=== PATIENT | male | born 1985 | race Caucasian/White ===

== ENCOUNTER 2017-10-03 11:50 | Inpatient (IN) | payer OTHER ==
[2017-10-03 12:34] VITALS: BMI 56.3
--- NOTE | 2017-10-03 15:59 | HP ---
Admission ROS [facility] Chief Complaint: Patient presents for Rehab services for heroin, benzodiazepine, crack/cocaine dependence. Allergies/Adverse Reactions: Allergies Allergy/AdvReac Type Severity Reaction Status Date / Time Penicillins Allergy Severe Difficulty Verified 10/03/17 13:04 Breathing shellfish derived Allergy Severe Difficulty Verified 10/03/17 13:04 Breathing History of Present Illness: Patient came from [facility] for rehab services. Has history of heroin, crack/cocaine and xanax dependence. Last time he used all substances was on 09/28. Pt has states he has been using while in [facility] program. Pt inhales/smokes heroin and crack/cocaine since age 16. Uses up to 2-3 bags of each per day. Takes up to 6mg of Xanax daily and began using xanax at age 16 as well. Attempted detox at [facility] 07/2017. Denies having any seizures from Xanax use or withdrawal. Denies SI/HI and suicide attempts. Patient reports being in [facility]. Takes 50mg of Methadone daily. Verification by RN pending. Medicated today [facility] program. Denies any PMH/PSH. Exam Limitations: No Limitations - Ebola screening Have you traveled outside of the country in the last 21 days: No Have you had contact with anyone from an Ebola affected area: No Have you been sick,other than usual withdrawal symptoms: No Do you have a fever: No - Review of Systems Constitutional: Changes in sleep EENT: reports: No Symptoms Reported Respiratory: reports: No Symptoms reported Cardiac: reports: No Symptoms Reported GI: reports: No Symptoms Reported : reports: No Symptoms Reported Musculoskeletal: reports: Back Pain, Muscle Pain Integumentary: reports: No Symptoms Reported Neuro: reports: No Symptoms reported Endocrine: reports: Unexplained Weight Gain Hematology: reports: No Symptoms Reported Psychiatric: reports: Orientated x3, Anxious, Depressed Patient History - Patient Medical History Hx Anemia: No Hx Asthma: No Hx Chronic Obstructive Pulmonary Disease (COPD): No Hx Cancer: No Hx Cardiac Disorders: No Hx Congestive Heart Failure: No Hx Hypertension: No Hx Hypercholesterolemia: No Hx Pacemaker: No HX Cerebrovascular Accident: No Hx Seizures: No Hx Dementia: No Hx Diabetes: No Hx Gastrointestinal Disorders: No Hx Liver Disease: No Hx Genitourinary Disorders: No Hx Sexually Transmitted Disorders: No Hx Renal Disease (ESRD): No Hx Thyroid Disease: No Hx Human Immunodeficiency Virus (HIV): No Hx Hepatitis C: No Hx Depression: Yes Hx Suicide Attempt: No Hx Bipolar Disorder: No Hx Schizophrenia: No - Patient Surgical History Past Surgical History: No Hx Neurologic Surgery: No Hx Cataract Extraction: No Hx Cardiac Surgery: No Hx Lung Surgery: No Hx Breast Surgery: No Hx Breast Biopsy: No Hx Abdominal Surgery: No Hx Appendectomy: No Hx Cholecystectomy: No Hx Genitourinary Surgery: No Hx Orthopedic Surgery: No Anesthesia Reaction: No - PPD History Previous Implant?: Yes Documented Results: Negative w/o proof PPD to be Administered?: Yes - Smoking Cessation Smoking history: Current every day smoker Have you smoked in the past 12 months: Yes Aproximately how many cigarettes per day: 20 Hx Chewing Tobacco Use: No Initiated information on smoking cessation: Yes 'Breaking Loose' booklet given: 10/03/17 - Substance & Tx. History Hx Alcohol Use: No Hx Substance Use: Yes Substance Use Type: Cocaine, Heroin, Marijuana, Tranquilizers Hx Substance Use Treatment: Yes - Substances Abused Alprazolam (Xanax) Route: Oral Frequency: 3-6 times per week Amount used: 4-6mg Age of first use: 26 Date of Last Use: 09/28/17 Cocaine Route: Inhalation Frequency: 1-3 times last 30 days Amount used: 1-2 bags Age of first use: 21 Date of Last Use: 09/28/17 Marijuana/Hashish Route: Smoking Frequency: 1-3 times last 30 days Amount used: 1 joint Age of first use: 12 Date of Last Use: 09/28/17 Family Disease History - Family Disease History Family Disease History: Diabetes: Father (alive), Mother (alive) Admission Physical Exam S - Vital Signs Vital Signs: Vital Signs - 24 hr 10/03/17 12:23 Temperature 98 F Pulse Rate 105 H Respiratory 19 Rate Blood Pressure 155/99 - Physical General Appearance: Yes: Appropriately Dressed, Obese, Anxious HEENTM: Yes: EOMI, Hearing grossly Normal, Normocephalic, TONY, Pharynx Normal Respiratory: Yes: Chest Non-Tender, Lungs Clear, Normal Breath Sounds, No Respiratory Distress, No Accessory Muscle Use Neck: Yes: No masses,lesions,Nodules, Supple, Trachea in good position Breast: Yes: Breast Exam Deferred Cardiology: Yes: Regular Rhythm, Regular Rate, S1, S2 Abdominal: Yes: Normal Bowel Sounds, Non Tender, Other (obese) Genitourinary: Yes: Within Normal Limits Back: Yes: Normal Inspection, Muscle Spasm Musculoskeletal: Yes: Gait Steady, Back pain, Muscle Pain Extremities: Yes: Non-Tender, Swelling Neurological: Yes: exchange consultant II-XII NML intact, Fully Oriented, Alert, Motor Strength 5/5, Depressed Affect Integumentary: Yes: Normal Color, Dry, Warm Lymphatic: Yes: Within Normal Limits - Diagnostic (1) Opioid dependence Current Visit: Yes Status: Chronic Qualifiers: Substance use status: uncomplicated Qualified Code(s): F11.20 - Opioid dependence, uncomplicated (2) Cocaine dependence Current Visit: Yes Status: Acute Qualifiers: Substance use status: uncomplicated Qualified Code(s): F14.20 - Cocaine dependence, uncomplicated (3) Sedative, hypnotic or anxiolytic dependence Current Visit: Yes Status: Acute (4) Depressed affect Current Visit: Yes Status: Acute (5) Methadone maintenance therapy patient Current Visit: Yes Status: Acute Cleared for Admission [facility] - Detox or Rehab Claeared for Rehab Admission: Yes [facility] Breath Alcohol Content Breath Alcohol Content: 0 Urine Drug Screen - Results Drug Screen Negative: No Urine Drug Screen Results: THC-Marijuana, BZO-Benzodiazepines, MTD-Methadone, TCA-Tricyclic Antidepress Inpatient Rehab Admission - Initial Determination Are CD services needed?: Yes Free of communicable disease: Yes Not in need of hospitalization: Yes - Rehab Admission Criteria Previous failed treatment: Yes Poor recovery environment: Yes Comorbidities: Yes Lacks judgement: Yes Patient is meeting Inpatient Rehab admission criteria:: Yes
[2017-10-03] MEDS ORDERED: LOPERAMIDE HCL 2 MG CAPSULE PO PRN (16:14)
[2017-10-03] MEDS ORDERED: guaiFENesin/D-METHORPHAN HB 10 ML UNIT-DOSE CUPS PO PRN (16:14)
[2017-10-03] MEDS ORDERED: MAGNESIUM CITRATE 300 ML BOTTLE PO PRN (16:14)
[2017-10-03] MEDS ORDERED: P-EPHED 60MG/TRIPROLIDI 2.5MG TABLET PO PRN (16:14)
[2017-10-03] MEDS ORDERED: MENTHOL/PHENOL 1 EACH UD MM PRN (16:14)
[2017-10-03] MEDS ORDERED: MAGNESIUM HYDROX 2400MG/30ML ORAL SUSPENSION 30 ML CUP PO PRN (16:14)
[2017-10-03] MEDS ORDERED: TUBERCULIN PPD 5 TU/0.1ML VIAL ID ONE (20:14)
[2017-10-03] MEDS: hydrOXYzine PAMOATE 50 MG CAPSULE (FP) PO PRN (21:12)
[2017-10-03] MEDS: MELATONIN 5 MG TABLETS PO PRN (21:12)
[2017-10-03] MEDS: THIAMINE HCL 100 MG TABLET (FP) PO SCH (21:12)
[2017-10-03] MEDS: IBUPROFEN 400 MG TABLET (FP) PO PRN (21:12)
[2017-10-03] MEDS: NICOTINE POLACRILEX 2 MG GUM BC PRN (22:39)
[2017-10-03 23:37] LABS: URINE APPEARANCE CLEAR; URINE BILIRUBIN NEGATIVE (<2.0 mg/dL); URINE BLOOD NEGATIVE (NEGATIVE); URINE COLOR YELLOW; URINE GLUCOSE (UA) NEGATIVE (NEGATIVE); URINE KETONE NEGATIVE (NEGATIVE); URINE LEUK ESTERASE NEGATIVE (NEGATIVE); URINE NITRITE NEGATIVE (NEGATIVE); URINE PROTEIN NEGATIVE (NEGATIVE); URINE UROBILINOGEN NEGATIVE mg/dL (0.2-1.0)
[2017-10-04] MEDS ORDERED: METHADONE HCL 10 MG TABLET PO ONE (08:56)
[2017-10-04] MEDS ORDERED: METHADONE 40 MG, METHADONE 10 MG PO ONE (09:05)
[2017-10-04] MEDS ORDERED: METHADONE HCL 10 MG TABLET ONE (09:38)
[2017-10-04] MEDS ORDERED: METHADONE HCL 40 MG DISPERSABLE TABLET ONE (09:39)
[2017-10-04] MEDS: PRENATAL VITAMINS W/ FOLIC ACID TABLET (FP) PO SCH (09:47)
[2017-10-04] MEDS: IBUPROFEN 400 MG TABLET (FP) PO PRN ×2 (09:48→21:06)
[2017-10-04] MEDS: NICOTINE 21 MG/24 HOURS TOPICAL PATCH TD SCH (09:48)
--- NOTE | 2017-10-04 09:49 | HP ---
Psychiatrist Admission - Data Date of interview: 10/04/17 Admission source: [facility] Identifying data: This is the first Inpatient Rehabilitation for this 32 years old single male, father of a 13 years old daughter, unemployed on public assistance, domiciled living a [facility] residential program Medical History: Significant for hypertension. Patient is methadone 50mg/day. Smokes cigarettes 1ppd Psychiatric History: Denies history of previous psychiatric treatment Physical/Sexual Abuse/Trauma History: Denies history pf emotional, physical or sexual abuse as well as DV relationship Additional Comment: Reports history of multiple previous arrests including one feliny conviction in 2009. Denies being on parole/probation Vital Signs: Vital Signs - 24 hr 10/03/17 10/04/17 12:23 06:42 Temperature 98 F 97.4 F L Pulse Rate 105 H 73 Respiratory 19 18 Rate Blood Pressure 155/99 132/86 Allergies/Adverse Reactions: Allergies Allergy/AdvReac Type Severity Reaction Status Date / Time Penicillins Allergy Severe Difficulty Verified 10/03/17 13:04 Breathing shellfish derived Allergy Severe Difficulty Verified 10/03/17 13:04 Breathing Date of last physical exam: 10/03/17 Concur with the findings of this exam: Yes - Substance Abuse/Tx History Hx Alcohol Use: No Hx Substance Use: Yes Substance Use Type: Cocaine (Started using cocaine at age 21, consumes 1-2 bags 1-3 times in the last 30 days. Last used on 09/28/17), Marijuana (Started smoking marijuana at age 12, consumes one joint 1-3 times in the last 30 days. Last smoked on 09/28/17), Tranquilizers (Started using xanax at age 26, consumes 4-6 mg 3-6 times weekly. Last used on 09/28/17) Hx Substance Use Treatment: Yes (detox @ [facility] in Jul 2017) Mental Status Exam - Mental Status Exam Alert and Oriented to: Time, Place, Person Cognitive Function: Fair Patient Appearance: Well Groomed Mood: Depressed (mildly) Affect: Appropriate Patient Behavior: Cooperative Speech Pattern: Clear Voice Loudness: Normal Thought Process: Intact, Goal Oriented Thought Disorder: Not Present Hallucinations: Denies Suicidal Ideation: Denies Homicidal Ideation: Denies Insight/Judgement: Fair Sleep: Poorly Appetite: Good Muscle strength/Tone: Normal Gait/Station: Normal Psychiatric Findings - Problem List ([place] 1, 2,3) (1) Cocaine dependence Current Visit: Yes Status: Acute Qualifiers: Substance use status: uncomplicated Qualified Code(s): F14.20 - Cocaine dependence, uncomplicated (2) Sedative, hypnotic or anxiolytic dependence Current Visit: Yes Status: Acute (3) Cannabis abuse Current Visit: Yes Status: Acute (4) Opioid dependence on agonist therapy Current Visit: Yes Status: Chronic (5) Nicotine dependence Current Visit: Yes Status: Chronic (6) Substance induced mood disorder Current Visit: Yes Status: Acute (7) Substance-induced sleep disorder Current Visit: Yes Status: Acute (8) HTN (hypertension) Current Visit: Yes Status: Chronic (9) Morbid obesity Current Visit: Yes Status: Chronic - Initial Treatment Plan Initial Treatment Plan: 1) Start Trazadone 100 mg po HS for insomnia. 2) Monitor progress
[2017-10-04] MEDS: NICOTINE POLACRILEX 2 MG GUM BC PRN ×3 (09:50→21:07)
[2017-10-04 10:25] LABS: HEMATOCRIT 43.3 % (35.4-49); HEMOGLOBIN 14.6 GM/dL (11.7-16.9); MCH 30.4 pg (25.7-33.7); MCHC 33.7 g/dl (32.0-35.9); MEAN CELL VOLUME 90.4 fl (80-96); MEAN PLT VOLUME 10.7 fl (7.5-11.1); PLATELET COUNT 146 K/MM3 (134-434); RBC 4.79 M/mm3 (4.00-5.60); RDW 13.6 % (11.9-15.9); WHITE BLOOD COUNT 8.3 K/mm3 (4.0-10.0)
[2017-10-04 10:48] LABS: CHLORIDE 106 mmol/L (98-107); POTASSIUM 4.2 mmol/L (3.5-5.1); SODIUM 141 mmol/L (136-145)
[2017-10-04 11:22] LABS: ALBUMIN 3.6 g/dl (3.4-5.0); ALK PHOS 106 U/L (45-117); ANION GAP 7 (8-16); BILIRUBIN,TOTAL 0.5 mg/dL (0.2-1.0); BLOOD UREA NITROGEN 9 mg/dL (7-18); CALCIUM 8.6 mg/dL (8.5-10.1); CO2 28 mmol/L (21-32); CREATININE 0.8 mg/dL (0.7-1.3); GLUCOSE,RANDOM 93 mg/dL (74-106); SGOT/AST 47 U/L (15-37); SGPT/ALT 68 U/L (12-78); TOT PROT 6.7 g/dl (6.4-8.2)
--- NOTE | 2017-10-04 15:11 | PN ---
[facility] Progress Note Note: Patient c/o of swelling on both legs. Denies pain, paresthesia, denies chest pain or SOB. Denies any cardiac hx. Vital Signs Temperature 97.4 F L 10/04/17 06:42 Pulse Rate 73 10/04/17 06:42 Respiratory Rate 18 10/04/17 06:42 Blood Pressure 132/86 10/04/17 06:42 O2 Sat by Pulse Oximetry (%) Laboratory Last Values WBC 8.3 K/mm3 (4.0-10.0) 10/04/17 05:50 RBC 4.79 M/mm3 (4.00-5.60) 10/04/17 05:50 Hgb 14.6 GM/dL (11.7-16.9) 10/04/17 05:50 Hct 43.3 % (35.4-49) 10/04/17 05:50 MCV 90.4 fl (80-96) 10/04/17 05:50 MCH 30.4 pg (25.7-33.7) 10/04/17 05:50 MCHC 33.7 g/dl (32.0-35.9) 10/04/17 05:50 RDW 13.6 % (11.9-15.9) 10/04/17 05:50 Plt Count 146 K/MM3 (134-434) 10/04/17 05:50 MPV 10.7 fl (7.5-11.1) 10/04/17 05:50 Sodium 141 mmol/L (136-145) 10/04/17 05:50 Potassium 4.2 mmol/L (3.5-5.1) 10/04/17 05:50 Chloride 106 mmol/L (98-107) 10/04/17 05:50 Carbon Dioxide 28 mmol/L (21-32) 10/04/17 05:50 Anion Gap 7 (8-16) L 10/04/17 05:50 BUN 9 mg/dL (7-18) 10/04/17 05:50 Creatinine 0.8 mg/dL (0.7-1.3) 10/04/17 05:50 Creat Clearance w eGFR > 60 (>60) 10/04/17 05:50 Random Glucose 93 mg/dL (74-106) 10/04/17 05:50 Calcium 8.6 mg/dL (8.5-10.1) 10/04/17 05:50 Total Bilirubin 0.5 mg/dL (0.2-1.0) 10/04/17 05:50 AST 47 U/L (15-37) H 10/04/17 05:50 ALT 68 U/L (12-78) 10/04/17 05:50 Alkaline Phosphatase 106 U/L (45-117) 10/04/17 05:50 Total Protein 6.7 g/dl (6.4-8.2) 10/04/17 05:50 Albumin 3.6 g/dl (3.4-5.0) 10/04/17 05:50 Urine Color Yellow 10/03/17 23:20 Urine Appearance Clear 10/03/17 23:20 Urine pH 8.0 (5.0-8.0) 10/03/17 23:20 Ur Specific [place] 1.025 (1.001-1.035) 10/03/17 23:20 Urine Protein Negative (NEGATIVE) 10/03/17 23:20 Urine Glucose (UA) Negative (NEGATIVE) 10/03/17 23:20 Urine Ketones Negative (NEGATIVE) 10/03/17 23:20 Urine Blood Negative (NEGATIVE) 10/03/17 23:20 Urine Nitrite Negative (NEGATIVE) 10/03/17 23:20 Urine Bilirubin Negative (<2.0 mg/dL) 10/03/17 23:20 Urine Urobilinogen Negative mg/dL (0.2-1.0) 10/03/17 23:20 Ur Leukocyte Esterase Negative (NEGATIVE) 10/03/17 23:20 RPR Titer Nonreactive (NONREACTIVE) 10/04/17 05:50 HIV 1&2 Antibody Screen Negative 10/04/17 05:50 HIV P24 Antigen Negative 10/04/17 05:50 A/P Patient AOx3, no apparent distress No adventitious breath sounds, lungs clear throughout Normal HR and Rythm + Edema + 3 bilateral, non-pitting, no erythema , skin cool to touch pulses present throughout - Edema both lower extremities Plan: Low sodium diet Leg elevation TEDS bilateral Continue to monitor
--- NOTE | 2017-10-04 16:16 | EKG ---
Test Reason : Blood Pressure : / mmHG Vent. Rate : 084 BPM Atrial Rate : 084 BPM P-R Int : 168 ms QRS Dur : 094 ms QT Int : 376 ms P-R-T Axes : 034 097 014 degrees QTc Int : 444 ms NORMAL SINUS RHYTHM RIGHTWARD AXIS BORDERLINE ECG NO PREVIOUS ECGS AVAILABLE Confirmed by TATO BORDEN, BETITO ([id number]) on 10/04/2017 4:15:53 PM Referred By: Confirmed By:BETITO GODWIN MD
[2017-10-04] MEDS: MELATONIN 5 MG TABLETS PO PRN (21:06)
[2017-10-04] MEDS: hydrOXYzine PAMOATE 50 MG CAPSULE (FP) PO PRN (21:06)
[2017-10-04] MEDS: traZODone HCL 100 MG TABLET (FP) PO SCH (21:06)
[2017-10-04] MEDS: THIAMINE HCL 100 MG TABLET (FP) PO SCH (21:07)
[2017-10-05] MEDS ORDERED: METHADONE HCL 10 MG TABLET ONE (05:46)
[2017-10-05] MEDS ORDERED: METHADONE HCL 40 MG DISPERSABLE TABLET ONE (05:46)
[2017-10-05] MEDS ORDERED: METHADONE HCL 10 MG TABLET PO SCH (06:00)
[2017-10-05] MEDS: METHADONE 40 MG, METHADONE 10 MG PO SCH (06:10)
[2017-10-05] MEDS: IBUPROFEN 400 MG TABLET (FP) PO PRN ×2 (06:12→21:09)
[2017-10-05] MEDS: NICOTINE 21 MG/24 HOURS TOPICAL PATCH TD SCH (09:50)
[2017-10-05] MEDS: PRENATAL VITAMINS W/ FOLIC ACID TABLET (FP) PO SCH (09:50)
[2017-10-05] MEDS: ACETAMINOPHEN 325 MG TABLET (FP) PO PRN (09:50)
[2017-10-05] MEDS: NICOTINE POLACRILEX 2 MG GUM BC PRN (09:52)
[2017-10-05] MEDS: THIAMINE HCL 100 MG TABLET (FP) PO SCH (21:09)
[2017-10-05] MEDS: hydrOXYzine PAMOATE 50 MG CAPSULE (FP) PO PRN (21:09)
[2017-10-05] MEDS: MELATONIN 5 MG TABLETS PO PRN (21:09)
[2017-10-05] MEDS: traZODone HCL 100 MG TABLET (FP) PO SCH (21:09)
[2017-10-06] MEDS ORDERED: METHADONE HCL 10 MG TABLET ONE (04:23)
[2017-10-06] MEDS ORDERED: METHADONE HCL 40 MG DISPERSABLE TABLET ONE (04:23)
[2017-10-06] MEDS: IBUPROFEN 400 MG TABLET (FP) PO PRN ×2 (06:31→21:14)
[2017-10-06] MEDS: NICOTINE POLACRILEX 2 MG GUM BC PRN ×3 (06:31→21:15)
[2017-10-06] MEDS: METHADONE 40 MG, METHADONE 10 MG PO SCH (06:31)
[2017-10-06] MEDS: PRENATAL VITAMINS W/ FOLIC ACID TABLET (FP) PO SCH (09:41)
[2017-10-06] MEDS: NICOTINE 21 MG/24 HOURS TOPICAL PATCH TD SCH (09:41)
[2017-10-06] MEDS: ACETAMINOPHEN 325 MG TABLET (FP) PO PRN (09:41)
[2017-10-06] MEDS: THIAMINE HCL 100 MG TABLET (FP) PO SCH (21:13)
[2017-10-06] MEDS: MELATONIN 5 MG TABLETS PO PRN (21:13)
[2017-10-06] MEDS: hydrOXYzine PAMOATE 50 MG CAPSULE (FP) PO PRN (21:14)
[2017-10-06] MEDS: traZODone HCL 100 MG TABLET (FP) PO SCH (21:14)
[2017-10-07] MEDS ORDERED: METHADONE HCL 10 MG TABLET ONE (03:01)
[2017-10-07] MEDS ORDERED: METHADONE HCL 40 MG DISPERSABLE TABLET ONE (03:01)
[2017-10-07] MEDS: IBUPROFEN 400 MG TABLET (FP) PO PRN ×2 (06:04→21:08)
[2017-10-07] MEDS: NICOTINE POLACRILEX 2 MG GUM BC PRN ×2 (06:04→21:08)
[2017-10-07] MEDS: METHADONE 40 MG, METHADONE 10 MG PO SCH (06:04)
[2017-10-07] MEDS: NICOTINE 21 MG/24 HOURS TOPICAL PATCH TD SCH (10:37)
[2017-10-07] MEDS: PRENATAL VITAMINS W/ FOLIC ACID TABLET (FP) PO SCH (10:37)
[2017-10-07] MEDS: THIAMINE HCL 100 MG TABLET (FP) PO SCH (21:08)
[2017-10-07] MEDS: hydrOXYzine PAMOATE 50 MG CAPSULE (FP) PO PRN (21:08)
[2017-10-07] MEDS: MELATONIN 5 MG TABLETS PO PRN (21:08)
[2017-10-07] MEDS: traZODone HCL 100 MG TABLET (FP) PO SCH (21:08)
[2017-10-08] MEDS ORDERED: METHADONE HCL 10 MG TABLET ONE (03:12)
[2017-10-08] MEDS ORDERED: METHADONE HCL 40 MG DISPERSABLE TABLET ONE (03:13)
[2017-10-08] MEDS: IBUPROFEN 400 MG TABLET (FP) PO PRN ×2 (06:14→21:05)
[2017-10-08] MEDS: METHADONE 40 MG, METHADONE 10 MG PO SCH (06:14)
[2017-10-08] MEDS: NICOTINE POLACRILEX 2 MG GUM BC PRN ×2 (06:15→21:06)
[2017-10-08] MEDS: NICOTINE 21 MG/24 HOURS TOPICAL PATCH TD SCH (10:24)
[2017-10-08] MEDS: PRENATAL VITAMINS W/ FOLIC ACID TABLET (FP) PO SCH (10:24)
[2017-10-08] MEDS: hydrOXYzine PAMOATE 50 MG CAPSULE (FP) PO PRN (21:06)
[2017-10-08] MEDS: traZODone HCL 100 MG TABLET (FP) PO SCH (21:06)
[2017-10-08] MEDS: MELATONIN 5 MG TABLETS PO PRN (21:06)
[2017-10-08] MEDS: THIAMINE HCL 100 MG TABLET (FP) PO SCH (21:07)
[2017-10-09] MEDS ORDERED: METHADONE HCL 10 MG TABLET ONE (04:06)
[2017-10-09] MEDS ORDERED: METHADONE HCL 40 MG DISPERSABLE TABLET ONE (04:06)
[2017-10-09] MEDS: METHADONE 40 MG, METHADONE 10 MG PO SCH (05:59)
[2017-10-09] MEDS: IBUPROFEN 400 MG TABLET (FP) PO PRN ×2 (06:00→21:11)
[2017-10-09] MEDS: NICOTINE POLACRILEX 2 MG GUM BC PRN ×4 (06:01→21:14)
[2017-10-09] MEDS: PRENATAL VITAMINS W/ FOLIC ACID TABLET (FP) PO SCH (09:37)
[2017-10-09] MEDS: NICOTINE 21 MG/24 HOURS TOPICAL PATCH TD SCH (09:37)
[2017-10-09] MEDS: ACETAMINOPHEN 325 MG TABLET (FP) PO PRN (09:38)
[2017-10-09] MEDS: MAG HYDROX/AL HYDROX/SIMETH 30 ML UNIT-DOSE CUP PO PRN (17:58)
[2017-10-09] MEDS: THIAMINE HCL 100 MG TABLET (FP) PO SCH (21:10)
[2017-10-09] MEDS: traZODone HCL 100 MG TABLET (FP) PO SCH (21:10)
[2017-10-09] MEDS: hydrOXYzine PAMOATE 50 MG CAPSULE (FP) PO PRN (21:13)
[2017-10-10] MEDS ORDERED: METHADONE HCL 40 MG DISPERSABLE TABLET ONE (02:43)
[2017-10-10] MEDS ORDERED: METHADONE HCL 10 MG TABLET ONE (02:43)
[2017-10-10] MEDS: METHADONE 40 MG, METHADONE 10 MG PO SCH (06:07)
[2017-10-10] MEDS: IBUPROFEN 400 MG TABLET (FP) PO PRN ×2 (06:08→21:14)
[2017-10-10] MEDS: NICOTINE POLACRILEX 2 MG GUM BC PRN ×3 (06:09→21:16)
[2017-10-10] MEDS: NICOTINE 21 MG/24 HOURS TOPICAL PATCH TD SCH (09:33)
[2017-10-10] MEDS: hydrOXYzine PAMOATE 50 MG CAPSULE (FP) PO PRN ×2 (09:33→21:15)
[2017-10-10] MEDS: PRENATAL VITAMINS W/ FOLIC ACID TABLET (FP) PO SCH (09:33)
[2017-10-10] MEDS: ACETAMINOPHEN 325 MG TABLET (FP) PO PRN (09:33)
[2017-10-10] MEDS: MAG HYDROX/AL HYDROX/SIMETH 30 ML UNIT-DOSE CUP PO PRN (20:06)
[2017-10-10] MEDS: traZODone HCL 100 MG TABLET (FP) PO SCH (21:15)
[2017-10-10] MEDS: MELATONIN 5 MG TABLETS PO PRN (21:15)
[2017-10-10] MEDS: THIAMINE HCL 100 MG TABLET (FP) PO SCH (21:15)
[2017-10-11] MEDS ORDERED: METHADONE HCL 10 MG TABLET ONE (05:27)
[2017-10-11] MEDS ORDERED: METHADONE HCL 40 MG DISPERSABLE TABLET ONE (05:28)
[2017-10-11] MEDS ORDERED: METHADONE HCL 40 MG DISPERSABLE TABLET PO SCH (06:00)
[2017-10-11] MEDS: IBUPROFEN 400 MG TABLET (FP) PO PRN ×2 (06:16→21:13)
[2017-10-11] MEDS: METHADONE 40 MG, METHADONE 10 MG PO SCH (06:17)
[2017-10-11] MEDS: NICOTINE POLACRILEX 2 MG GUM BC PRN ×2 (06:18→09:51)
[2017-10-11] MEDS: PRENATAL VITAMINS W/ FOLIC ACID TABLET (FP) PO SCH (09:47)
[2017-10-11] MEDS: NICOTINE 21 MG/24 HOURS TOPICAL PATCH TD SCH (09:47)
[2017-10-11] MEDS: ACETAMINOPHEN 325 MG TABLET (FP) PO PRN ×2 (09:48→17:19)
[2017-10-11] MEDS: hydrOXYzine PAMOATE 50 MG CAPSULE (FP) PO PRN ×2 (09:48→21:14)
[2017-10-11] MEDS: MAG HYDROX/AL HYDROX/SIMETH 30 ML UNIT-DOSE CUP PO PRN ×2 (12:13→17:19)
[2017-10-11] MEDS: THIAMINE HCL 100 MG TABLET (FP) PO SCH (21:11)
[2017-10-11] MEDS: traZODone HCL 100 MG TABLET (FP) PO SCH (21:11)
[2017-10-11] MEDS: MELATONIN 5 MG TABLETS PO PRN (21:12)
[2017-10-12] MEDS ORDERED: METHADONE HCL 10 MG TABLET ONE (04:46)
[2017-10-12] MEDS ORDERED: METHADONE HCL 40 MG DISPERSABLE TABLET ONE (04:46)
[2017-10-12] MEDS: IBUPROFEN 400 MG TABLET (FP) PO PRN ×2 (06:15→21:18)
[2017-10-12] MEDS: METHADONE 40 MG, METHADONE 10 MG PO SCH (06:15)
[2017-10-12] MEDS: hydrOXYzine PAMOATE 50 MG CAPSULE (FP) PO PRN ×3 (06:15→21:18)
[2017-10-12] MEDS: NICOTINE POLACRILEX 2 MG GUM BC PRN ×3 (06:16→21:19)
[2017-10-12] MEDS: MAG HYDROX/AL HYDROX/SIMETH 30 ML UNIT-DOSE CUP PO PRN ×2 (08:16→21:18)
[2017-10-12] MEDS: NICOTINE 21 MG/24 HOURS TOPICAL PATCH TD SCH (09:37)
[2017-10-12] MEDS: ACETAMINOPHEN 325 MG TABLET (FP) PO PRN (09:37)
[2017-10-12] MEDS: PRENATAL VITAMINS W/ FOLIC ACID TABLET (FP) PO SCH (09:37)
[2017-10-12] MEDS: traZODone HCL 100 MG TABLET (FP) PO SCH (21:18)
[2017-10-12] MEDS: MELATONIN 5 MG TABLETS PO PRN (21:18)
[2017-10-12] MEDS: THIAMINE HCL 100 MG TABLET (FP) PO SCH (21:18)
[2017-10-13] MEDS ORDERED: METHADONE HCL 40 MG DISPERSABLE TABLET ONE (02:53)
[2017-10-13] MEDS ORDERED: METHADONE HCL 10 MG TABLET ONE (02:53)
[2017-10-13] MEDS: METHADONE 40 MG, METHADONE 10 MG PO SCH (06:12)
[2017-10-13] MEDS: IBUPROFEN 400 MG TABLET (FP) PO PRN ×2 (06:13→21:24)
[2017-10-13] MEDS: hydrOXYzine PAMOATE 50 MG CAPSULE (FP) PO PRN ×3 (06:13→21:24)
[2017-10-13] MEDS: PRENATAL VITAMINS W/ FOLIC ACID TABLET (FP) PO SCH (09:46)
[2017-10-13] MEDS: NICOTINE 21 MG/24 HOURS TOPICAL PATCH TD SCH (09:47)
[2017-10-13] MEDS: ACETAMINOPHEN 325 MG TABLET (FP) PO PRN (09:47)
[2017-10-13] MEDS: NICOTINE POLACRILEX 2 MG GUM BC PRN ×2 (09:49→21:26)
[2017-10-13] MEDS: MAG HYDROX/AL HYDROX/SIMETH 30 ML UNIT-DOSE CUP PO PRN (18:48)
[2017-10-13] MEDS: traZODone HCL 100 MG TABLET (FP) PO SCH (21:24)
[2017-10-13] MEDS: MELATONIN 5 MG TABLETS PO PRN (21:24)
[2017-10-13] MEDS: THIAMINE HCL 100 MG TABLET (FP) PO SCH (21:24)
[2017-10-14] MEDS ORDERED: METHADONE HCL 40 MG DISPERSABLE TABLET ONE (02:54)
[2017-10-14] MEDS ORDERED: METHADONE HCL 10 MG TABLET ONE (02:54)
[2017-10-14] MEDS: hydrOXYzine PAMOATE 50 MG CAPSULE (FP) PO PRN ×3 (06:14→21:11)
[2017-10-14] MEDS: METHADONE 40 MG, METHADONE 10 MG PO SCH (06:14)
[2017-10-14] MEDS: IBUPROFEN 400 MG TABLET (FP) PO PRN ×2 (06:14→21:11)
[2017-10-14] MEDS: NICOTINE 21 MG/24 HOURS TOPICAL PATCH TD SCH (10:00)
[2017-10-14] MEDS: PRENATAL VITAMINS W/ FOLIC ACID TABLET (FP) PO SCH (10:00)
[2017-10-14] MEDS: ACETAMINOPHEN 325 MG TABLET (FP) PO PRN (10:02)
[2017-10-14] MEDS: MAG HYDROX/AL HYDROX/SIMETH 30 ML UNIT-DOSE CUP PO PRN ×2 (10:03→21:11)
[2017-10-14] MEDS: NICOTINE POLACRILEX 2 MG GUM BC PRN ×2 (10:04→21:13)
[2017-10-14] MEDS: THIAMINE HCL 100 MG TABLET (FP) PO SCH (21:07)
[2017-10-14] MEDS: traZODone HCL 100 MG TABLET (FP) PO SCH (21:08)
[2017-10-14] MEDS: MELATONIN 5 MG TABLETS PO PRN (21:11)
[2017-10-15] MEDS ORDERED: METHADONE HCL 10 MG TABLET ONE (04:18)
[2017-10-15] MEDS ORDERED: METHADONE HCL 40 MG DISPERSABLE TABLET ONE (04:19)
[2017-10-15] MEDS: METHADONE 40 MG, METHADONE 10 MG PO SCH (06:15)
[2017-10-15] MEDS: IBUPROFEN 400 MG TABLET (FP) PO PRN ×2 (06:15→21:49)
[2017-10-15] MEDS: MAG HYDROX/AL HYDROX/SIMETH 30 ML UNIT-DOSE CUP PO PRN ×2 (06:16→21:49)
[2017-10-15] MEDS: hydrOXYzine PAMOATE 50 MG CAPSULE (FP) PO PRN ×2 (06:16→21:50)
[2017-10-15] MEDS: NICOTINE POLACRILEX 2 MG GUM BC PRN ×4 (06:18→21:51)
[2017-10-15] MEDS: NICOTINE 21 MG/24 HOURS TOPICAL PATCH TD SCH (09:34)
[2017-10-15] MEDS: PRENATAL VITAMINS W/ FOLIC ACID TABLET (FP) PO SCH (09:34)
[2017-10-15] MEDS: ACETAMINOPHEN 325 MG TABLET (FP) PO PRN (09:35)
[2017-10-15] MEDS: traZODone HCL 100 MG TABLET (FP) PO SCH (21:49)
[2017-10-15] MEDS: THIAMINE HCL 100 MG TABLET (FP) PO SCH (21:49)
[2017-10-15] MEDS: MELATONIN 5 MG TABLETS PO PRN (21:50)
[2017-10-16] MEDS ORDERED: METHADONE HCL 10 MG TABLET ONE (05:00)
[2017-10-16] MEDS ORDERED: METHADONE HCL 40 MG DISPERSABLE TABLET ONE (05:01)
[2017-10-16] MEDS: IBUPROFEN 400 MG TABLET (FP) PO PRN ×2 (06:24→21:14)
[2017-10-16] MEDS: hydrOXYzine PAMOATE 50 MG CAPSULE (FP) PO PRN ×3 (06:24→21:14)
[2017-10-16] MEDS: MAG HYDROX/AL HYDROX/SIMETH 30 ML UNIT-DOSE CUP PO PRN ×2 (06:24→21:14)
[2017-10-16] MEDS: NICOTINE POLACRILEX 2 MG GUM BC PRN ×3 (06:25→21:16)
[2017-10-16] MEDS: METHADONE 40 MG, METHADONE 10 MG PO SCH (06:25)
--- NOTE | 2017-10-16 09:48 | PN ---
Psychiatric Progress Note Vital Signs: Vital Signs Period Temp Pulse Resp BP Sys/Flores Pulse Ox Last 24 Hr 97.8 F 79-85 20-20 111-116/70-78 Date of Session: 10/16/17 Chief Complaint:: Discharge Note HPI: Patient addressing Cocaine, Sedative and Cannabis Dependence comorbid with Opioid Dependence on Agonist Therapy, Nicotine Dependence, Substance-Induced Mood Disorder and Substance-Induced Sleep Disorder ROS: HTN Current Medications: Active Medications Generic Name Dose Route Start Last Admin Trade Name Freq PRN Reason Stop Dose Admin Acetaminophen 650 mg 10/03/17 16:14 10/15/17 09:35 Tylenol - PO 650 mg Q4H PRN Administration FEVER Al Hydroxide/Mg Hydroxide 30 ml 10/03/17 16:14 10/16/17 06:24 Mylanta Oral Suspension - PO 30 ml Q6H PRN Administration DYSPEPSIA Eucalyptus/Menthol/Phenol/Sorbitol 1 each 10/03/17 16:14 Cepastat Lozenge - MM Q4H PRN SORE THROAT Guaifenesin 10 ml 10/03/17 16:14 Robitussin Dm - PO Q6H PRN COUGH Hydroxyzine Pamoate 50 mg 10/03/17 16:14 10/16/17 06:24 Vistaril - PO 50 mg Q4H PRN Administration AGITATION Ibuprofen 400 mg 10/03/17 16:14 10/16/17 06:24 Motrin - PO 400 mg Q6H PRN Administration Pain level 4-6 Loperamide HCl 4 mg 10/03/17 16:14 Imodium - PO Q6H PRN DIARRHEA Magnesium Citrate 300 ml 10/03/17 16:14 Citroma - PO Q48H PRN CONSTIPATION Magnesium Hydroxide 30 ml 10/03/17 16:14 Milk Of Magnesia - PO DAILY PRN CONSTIPATION Melatonin 5 mg 10/03/17 22:00 10/15/17 21:50 Melatonin PO 5 mg HS PRN Administration INSOMNIA Methadone HCl 40 mg/ Methadone 50 mg 10/17/17 06:00 HCl 10 mg PO DAILY@0600 ALISSA Nicotine 21 mg 10/04/17 10:00 10/15/17 09:34 Nicoderm Patch - TD 21 mg DAILY ALISSA Administration Nicotine Polacrilex 2 mg 10/03/17 16:14 10/16/17 06:25 Nicorette Gum - BC 2 mg Q2H PRN Administration NICOTINE REPLACEMENT RX Multivit/Folic Acid/Iron 1 tab 10/04/17 10:00 10/15/17 09:34 Vitamins (Sjr) - PO 1 tab DAILY ALISSA Administration Pseudoephedrine/Triprolidine 1 combo 10/03/17 16:14 Actifed - PO TID PRN NASAL CONGESTION Thiamine HCl 100 mg 10/03/17 22:00 10/15/17 21:49 Vitamin B1 - PO 100 mg HS ALISSA Administration Trazodone HCl 100 mg 10/04/17 22:00 10/15/17 21:49 Desyrel - PO 100 mg HS ALISSA Administration Current Side Effect: No Lab tests ordered: Yes Lab tests reviewed: Yes Provider note:: Patient will complete this program on 10/17/17. He has met his treatment goals and will continue to address his issues in inpatient treatment program at [facility] at [address] [place] [id number]. Told tag writer that from his participation in this program, he has learned to focus more on himself, be more spiritual and make meetings. He responded well to Trazadone 100 mg po HS for insomnia. Script for 30 day supply of that medication will be electronically transmitted to [facility] at [address] [place] [address]. He is stable for discharge on 10/17/17 Total face to face time:: 35 Mental Status Exam - Mental Status Exam Alert and Oriented to: Time, Place, Person Cognitive Function: Fair Patient Appearance: Well Groomed Mood: Hopeful, Euthymic Affect: Appropriate Patient Behavior: Cooperative Speech Pattern: Clear Voice Loudness: Normal Thought Process: Intact, Goal Oriented Thought Disorder: Not Present Hallucinations: Denies Suicidal Ideation: Denies Homicidal Ideation: Denies Insight/Judgement: Fair Sleep: Fair Appetite: Good Muscle strength/Tone: Normal Gait/Station: Normal Psychiatric Treatment Plan - Problem List (1) Cocaine dependence Current Visit: Yes Qualifiers: Substance use status: uncomplicated Qualified Code(s): F14.20 - Cocaine dependence, uncomplicated (2) Sedative, hypnotic or anxiolytic dependence Current Visit: Yes (3) Cannabis abuse Current Visit: Yes (4) Opioid dependence on agonist therapy Current Visit: Yes (5) Nicotine dependence Current Visit: Yes Qualifiers: Nicotine product type: cigarettes (6) Substance induced mood disorder Current Visit: Yes (7) Substance-induced sleep disorder Current Visit: Yes (8) HTN (hypertension) Current Visit: Yes (9) Morbid obesity Current Visit: Yes Initial treatment plan: Patient will be discharged tomorrow and [facility]
[2017-10-16] MEDS: ACETAMINOPHEN 325 MG TABLET (FP) PO PRN (09:57)
[2017-10-16] MEDS: PRENATAL VITAMINS W/ FOLIC ACID TABLET (FP) PO SCH (09:57)
[2017-10-16] MEDS: NICOTINE 21 MG/24 HOURS TOPICAL PATCH TD SCH (09:57)
[2017-10-16] MEDS: traZODone HCL 100 MG TABLET (FP) PO SCH (21:13)
[2017-10-16] MEDS: MELATONIN 5 MG TABLETS PO PRN (21:13)
[2017-10-16] MEDS: THIAMINE HCL 100 MG TABLET (FP) PO SCH (21:14)
[2017-10-17] MEDS ORDERED: METHADONE HCL 10 MG TABLET ONE (04:52)
[2017-10-17] MEDS ORDERED: METHADONE HCL 40 MG DISPERSABLE TABLET ONE (04:53)
[2017-10-17] MEDS ORDERED: METHADONE 40 MG, METHADONE 10 MG PO SCH (06:00)
[2017-10-17] MEDS ORDERED: METHADONE HCL 10 MG TABLET PO SCH (06:00)
[2017-10-17] MEDS: IBUPROFEN 400 MG TABLET (FP) PO PRN (06:32)
[2017-10-17] MEDS: MAG HYDROX/AL HYDROX/SIMETH 30 ML UNIT-DOSE CUP PO PRN (06:32)
[2017-10-17] MEDS: hydrOXYzine PAMOATE 50 MG CAPSULE (FP) PO PRN (06:32)
[2017-10-17] MEDS: NICOTINE POLACRILEX 2 MG GUM BC PRN (06:33)
[2017-10-17 06:48] VITALS: BP 117/71; PULSE 80; TEMP 97.9
[2017-10-17] MEDS: PRENATAL VITAMINS W/ FOLIC ACID TABLET (FP) PO SCH (09:13)
[2017-10-17] MEDS: NICOTINE 21 MG/24 HOURS TOPICAL PATCH TD SCH (09:13)
== END 2017-10-17 09:15 | disposition home or self-care (01) | DRG 772 ==
LOC: YASAS 11:50 → Y3W 18:23
PROVIDERS: ADMIT Psychiatry & Neurology Psychiatry; ATTEND Psychiatry & Neurology Psychiatry
PROC: HZ42ZZZ Group Counseling for Substance Abuse Treatment, Cognitive-Behavioral (ICD-10-PCS; principal; 2017-10-03)
DX: F13.20 Sedative, hypnotic or anxiolytic dependence, uncomplicated (principal); F11.20 Opioid dependence, uncomplicated; F14.20 Cocaine dependence, uncomplicated; F12.10 Cannabis abuse, uncomplicated; F17.210 Nicotine dependence, cigarettes, uncomplicated; F19.24 Other psychoactive substance dependence with psychoactive substance-induced mood disorder; F19.282 Other psychoactive substance dependence with psychoactive substance-induced sleep disorder; I10 Essential (primary) hypertension; R60.0 Localized edema; E66.01 Morbid (severe) obesity due to excess calories; Z68.43 Body mass index [BMI] 50.0-59.9, adult; Z88.0 Allergy status to penicillin; Z91.013 Allergy to seafood
CPT/HCPCS: 36415; 80053; 81003; 85027; 86593; 87389; 93005; 93010